=== PATIENT | male | born 1970 | race African-American/Black ===

== ENCOUNTER 2018-10-25 11:47 | Emergency (ER) | payer MEDICAID ==
[~2018-10-25] VITALS: Ht 170.2 cm; Wt 70.0 kg
[2018-10-25] MEDS ORDERED: LIDOCAINE 1%/EPI 1:100,000 10 ML VIAL IJ ONE (14:45)
[2018-10-25] MEDS ORDERED: BACITRACIN ZINC OINT UDPKT TOP ONE (14:45)
[2018-10-25] MEDS ORDERED: LIDOCAINE HCL/EPINEPHRINE 1%-EPI 1:100,000 20 ML VIAL INFIL ONE (15:00)
[2018-10-25] MEDS ORDERED: TETANUS, DIPHTHERIA, PERTUSSIS VAC/PF 0.5ML (>7YR OLD) IM ONE (15:00)
[2018-10-25 15:25] VITALS: BP 148/85
== END 2018-10-25 15:25 | disposition home or self-care (01) ==
LOC: ER 11:47
DX: S61.412A Laceration without foreign body of left hand, initial encounter (principal); W26.0XXA Contact with knife, initial encounter; Y93.89 Activity, other specified; Y92.89 Other specified places as the place of occurrence of the external cause; Y99.8 Other external cause status
CPT/HCPCS: 12001; 90471; 90715; 99283; J3490

== ENCOUNTER 2019-01-31 11:02 | Emergency (ER) | payer MEDICAID ==
[~2019-01-31] VITALS: Ht 190.5 cm; Wt 93.0 kg
[2019-01-31] MEDS ORDERED: IBUPROFEN 400MG TABLET PO ONE (11:45)
[2019-01-31 11:53] VITALS: BP 130/87
== END 2019-01-31 11:55 | disposition home or self-care (01) ==
LOC: ER 11:02
DX: L03.011 Cellulitis of right finger (principal); F17.290 Nicotine dependence, other tobacco product, uncomplicated; F12.10 Cannabis abuse, uncomplicated
CPT/HCPCS: 99283

== ENCOUNTER 2019-02-14 10:02 | Emergency (ER) | payer MEDICAID ==
[~2019-02-14] VITALS: Ht 182.9 cm; Wt 94.6 kg
[2019-02-14 10:50] VITALS: BP 132/95
== END 2019-02-14 13:12 | disposition home or self-care (01) ==
LOC: ER 10:02
DX: S60.021A Contusion of right index finger without damage to nail, initial encounter (principal); F12.10 Cannabis abuse, uncomplicated; W23.0XXA Caught, crushed, jammed, or pinched between moving objects, initial encounter; Y93.89 Activity, other specified; Y92.89 Other specified places as the place of occurrence of the external cause; Y99.8 Other external cause status
CPT/HCPCS: 73140; 99283

== ENCOUNTER 2019-02-27 22:47 | Emergency (ER) | payer MEDICAID ==
[~2019-02-27] VITALS: Ht 185.4 cm; Wt 90.0 kg
[2019-02-27] MEDS ORDERED: PHENYTOIN SODIUM 1,000 MG in SODIUM CHLORIDE 0.9% 100 ML IV ONE (23:45)
[2019-02-28 00:18] LABS: BASOPHILS % 0.7 % (0.0-2.0); EOSINOPHILS % 1.3 % (0.0-5.0); HEMATOCRIT. 39.3 % (42.0-52.0); LYMPHOCYTES % 17.5 % (20.0-50.0); MEAN CORPUSCULAR HEMOGLOBIN 28.5 pg (28.0-32.0); MEAN CORPUSCULAR VOLUME 86.5 fL (80.0-94.0); MEAN PLATELET VOLUME 7.8 fl (7.4-10.4); MONOCYTES % 8.8 % (2.0-8.0); NEUTROPHILS % 71.7 % (40.0-76.0); PLATELET 212 x1000/uL (130-400); RED BLOOD CELL COUNT 4.54 mill/uL (4.7-6.1); RED CELL DISTRIBUTION WIDTH 14.4 % (11.6-14.6)
[2019-02-28 00:23] LABS: CHLORIDE 105 mEq/L (98-107)
[2019-02-28 00:29] LABS: ETHANOL BLOOD < 10 mg/dL
[2019-02-28 00:51] LABS: CLARITY URINE CLEAR (CLEAR); COLOR URINE YELLOW (YELLOW); KETONES URINE NEGATIVE (NEGATIVE); LEUKOCYTE ESTERASE URINE NEGATIVE (NEGATIVE); NITRITE URINE NEGATIVE (NEGATIVE); OCCULT BLOOD URINE NEGATIVE (NEGATIVE); PROTEIN URINE NEGATIVE (NEGATIVE); SPECIFIC GRAVITY URINE 1.016 (1.005-1.030)
[2019-02-28 01:26] LABS: *COCAINE SCREEN URINE NEGATIVE (NEGATIVE); CANNABINOID URINE SCREEN PRESUMTIVE POSITIVE (NEGATIVE); METHADONE URINE SCREEN NEGATIVE (NEGATIVE); OPIATES URINE SCREEN NEGATIVE (NEGATIVE); PHENCYCLIDINE URINE SCREEN NEGATIVE (NEGATIVE)
[2019-02-28 01:27] LABS: *AMPHETAMINES SCREEN URINE NEGATIVE (NEGATIVE); *BARBITURATES SCREEN URINE NEGATIVE (NEGATIVE); *BENZODIAZEPINES SCREEN URINE NEGATIVE (NEGATIVE)
[2019-02-28 02:45] VITALS: BP 141/87
== END 2019-02-28 03:09 | disposition home or self-care (01) ==
LOC: ER 22:47
DX: G40.909 Epilepsy, unspecified, not intractable, without status epilepticus (principal); F12.10 Cannabis abuse, uncomplicated; Z91.14 Patient's other noncompliance with medication regimen
CPT/HCPCS: 36415; 80053; 80305; 80320; 81003; 85025; 96365; 99283; J1165; J7050; G0480

== ENCOUNTER 2020-02-10 01:52 | Emergency (ER) | payer MEDICAID ==
[~2020-02-10] VITALS: Ht 177.8 cm; Wt 82.0 kg
[2020-02-10 01:57] VITALS: BP 169/119
[2020-02-10] MEDS ORDERED: LEVETIRACETAM 100MG/ML ORAL SYR PO ONE (02:15)
[2020-02-10] MEDS ORDERED: LEVETIRACETAM 500MG/5ML CUP PO NR (02:30)
== END 2020-02-10 02:30 | disposition home or self-care (01) ==
LOC: ER 01:52
DX: R56.9 Unspecified convulsions (principal); F12.10 Cannabis abuse, uncomplicated; Z91.14 Patient's other noncompliance with medication regimen
CPT/HCPCS: 93005; 99283

== ENCOUNTER 2021-09-23 13:11 | Emergency (ER) | payer MEDICAID ==
[~2021-09-23] VITALS: Ht 180.3 cm; Wt 82.0 kg
[2021-09-23] MEDS ORDERED: LEVETIRACETAM 500MG PREMIX 100 ML IV ONE ×2 (13:45→15:00)
[2021-09-23] MEDS ORDERED: MIDAZOLAM HCL 2 MG/2 ML VIAL IM ONE (13:45)
[2021-09-23] MEDS ORDERED: SODIUM CHLORIDE 0.9% 1,000 ML IV ONE (13:45)
[2021-09-23] MEDS ORDERED: LEVETIRACETAM 500MG/5ML CUP PO ONE (14:30)
[2021-09-23] MEDS ORDERED: MIDAZOLAM HCL 2 MG/2 ML VIAL IV ONE (15:00)
[2021-09-23 15:27] LABS: BASOPHILS % 0.5 % (0.0-2.0); EOSINOPHILS % 0.1 % (0.0-5.0); HEMATOCRIT. 40.7 % (42.0-52.0); HEMOGLOBIN. 13.5 g/dL (14.0-18.0); LYMPHOCYTES % 15.7 % (20.0-50.0); MEAN CORPUSCULAR HEMOGLOBIN 28.2 pg (28.0-32.0); MEAN CORPUSCULAR VOLUME 85.4 fL (80.0-94.0); MEAN PLATELET VOLUME 7.8 fl (7.4-10.4); MONOCYTES % 7.4 % (2.0-8.0); NEUTROPHILS % 76.3 % (40.0-76.0); PLATELET 271 x1000/uL (130-400); RED BLOOD CELL COUNT 4.77 mill/uL (4.7-6.1); RED CELL DISTRIBUTION WIDTH 13.8 % (11.6-14.6)
[2021-09-23 15:38] LABS: CHLORIDE 104 mEq/L (98-107)
[2021-09-23 15:46] LABS: ETHANOL BLOOD < 10 mg/dL; VALPROIC ACID <3.0 ug/mL ug/mL (50-100)
[2021-09-23 16:00] LABS: CARBAMAZEPINE < 0.5 ug/mL (4-12); PHENOBARBITAL < 2.1 ug/mL (15.0-40.0)
[2021-09-23] MEDS ORDERED: KEPP500 MT (16:55)
[2021-09-23 19:30] VITALS: BP 142/90
== END 2021-09-23 20:58 | disposition home or self-care (01) ==
LOC: ER 13:11
DX: R56.9 Unspecified convulsions (principal); F12.10 Cannabis abuse, uncomplicated; R41.0 Disorientation, unspecified
CPT/HCPCS: 36415; 80053; 80156; 80165; 80184; 80185; 80320; 85025; 93005; 96365; 96375; 99285; J1953; J2250; J7030; G0480

== ENCOUNTER 2021-12-02 17:21 | Emergency (ER) | payer MEDICAID ==
[~2021-12-02] VITALS: Ht 175.3 cm; Wt 77.0 kg
[~2021-12-02 17:21] MED LIST: KEPP500 MT
[2021-12-02 18:20] VITALS: BP 171/121
[2021-12-02] MEDS ORDERED: LEVETIRACETAM 500MG TABLET PO ONE (18:30)
[2021-12-02 19:42] LABS: HEMATOCRIT. 39.9 % (42.0-52.0); HEMOGLOBIN. 13.3 g/dL (14.0-18.0); MEAN CORPUSCULAR HEMOGLOBIN 28.3 pg (28.0-32.0); MEAN CORPUSCULAR VOLUME 85.1 fL (80.0-94.0); MEAN PLATELET VOLUME 8.3 fl (7.4-10.4); PLATELET 259 x1000/uL (130-400); RED BLOOD CELL COUNT 4.69 mill/uL (4.7-6.1); RED CELL DISTRIBUTION WIDTH 14.8 % (11.6-14.6)
[2021-12-02 19:45] LABS: CLARITY URINE CLEAR (CLEAR); COLOR URINE YELLOW (YELLOW); KETONES URINE NEGATIVE (NEGATIVE); NITRITE URINE NEGATIVE (NEGATIVE); OCCULT BLOOD URINE NEGATIVE (NEGATIVE); PROTEIN URINE NEGATIVE (NEGATIVE); SPECIFIC GRAVITY URINE 1.015 (1.005-1.030)
[2021-12-02 19:46] LABS: LEUKOCYTE ESTERASE URINE NEGATIVE (NEGATIVE); UROBILINOGEN URINE 0.2 E.U./dL (0.2-1.0)
[2021-12-02 19:48] LABS: CHLORIDE 103 mEq/L (98-107)
[2021-12-02 19:59] LABS: ETHANOL BLOOD < 10 mg/dL
[2021-12-02 20:01] LABS: *AMPHETAMINES SCREEN URINE NEGATIVE (NEGATIVE); *BARBITURATES SCREEN URINE NEGATIVE (NEGATIVE); *BENZODIAZEPINES SCREEN URINE NEGATIVE (NEGATIVE); *COCAINE SCREEN URINE NEGATIVE (NEGATIVE); CANNABINOID URINE SCREEN PRESUMTIVE POSITIVE (NEGATIVE); METHADONE URINE SCREEN NEGATIVE (NEGATIVE); OPIATES URINE SCREEN NEGATIVE (NEGATIVE); PHENCYCLIDINE URINE SCREEN NEGATIVE (NEGATIVE)
[2021-12-02] MEDS ORDERED: KEPP500 MT (20:16)
[2021-12-02 22:35] LABS: PLATELET ESTIMATE NORMAL
== END 2021-12-02 20:45 | disposition home or self-care (01) ==
LOC: ER 17:21
DX: G40.509 Epileptic seizures related to external causes, not intractable, without status epilepticus (principal); D64.9 Anemia, unspecified; F17.200 Nicotine dependence, unspecified, uncomplicated; F12.10 Cannabis abuse, uncomplicated; I10 Essential (primary) hypertension; Z13.9 Encounter for screening, unspecified
CPT/HCPCS: 36415; 80053; 80305; 80320; 81003; 82962; 85025; 99283; G0480

== ENCOUNTER 2022-01-01 10:40 | Emergency (ER) | payer MEDICAID ==
[~2022-01-01] VITALS: Ht 177.8 cm; Wt 95.0 kg
[2022-01-01] MEDS ORDERED: LEVETIRACETAM 500MG PREMIX 100 ML IV ONE (11:00)
[2022-01-01 11:29] LABS: BASOPHILS % 0.9 % (0.0-2.0); EOSINOPHILS % 0.5 % (0.0-5.0); HEMATOCRIT. 40.2 % (42.0-52.0); HEMOGLOBIN. 13.1 g/dL (14.0-18.0); LYMPHOCYTES % 20.4 % (20.0-50.0); MEAN CORPUSCULAR HEMOGLOBIN 28.2 pg (28.0-32.0); MEAN CORPUSCULAR VOLUME 86.6 fL (80.0-94.0); MEAN PLATELET VOLUME 8.3 fl (7.4-10.4); MONOCYTES % 6.6 % (2.0-8.0); NEUTROPHILS % 71.6 % (40.0-76.0); PLATELET 245 x1000/uL (130-400); RED BLOOD CELL COUNT 4.64 mill/uL (4.7-6.1); RED CELL DISTRIBUTION WIDTH 14.4 % (11.6-14.6)
[2022-01-01 11:35] LABS: CHLORIDE 107 mEq/L (98-107)
[2022-01-01 11:42] LABS: ETHANOL BLOOD < 10 mg/dL
[2022-01-01 12:18] LABS: *AMPHETAMINES SCREEN URINE NEGATIVE (NEGATIVE); *BARBITURATES SCREEN URINE NEGATIVE (NEGATIVE); *BENZODIAZEPINES SCREEN URINE NEGATIVE (NEGATIVE); *COCAINE SCREEN URINE NEGATIVE (NEGATIVE); CANNABINOID URINE SCREEN PRESUMTIVE POSITIVE (NEGATIVE); METHADONE URINE SCREEN NEGATIVE (NEGATIVE); OPIATES URINE SCREEN NEGATIVE (NEGATIVE); PHENCYCLIDINE URINE SCREEN NEGATIVE (NEGATIVE)
[2022-01-01 12:58] VITALS: BP 160/97
== END 2022-01-01 13:29 | disposition home or self-care (01) ==
LOC: ER 10:40
DX: R56.9 Unspecified convulsions (principal)
CPT/HCPCS: 36415; 80053; 80305; 80320; 85025; 96374; 99283; J1953; G0480

== ENCOUNTER 2022-04-08 09:14 | Emergency (ER) | payer MEDICAID ==
[~2022-04-08] VITALS: Ht 185.4 cm; Wt 86.0 kg
[2022-04-08] MEDS ORDERED: LORAZEPAM 2MG/ML CPJ IV PRN (09:45)
[2022-04-08] MEDS ORDERED: LEVETIRACETAM 1,000 MG in SODIUM CHLORIDE 0.9% 100 ML IV SCH (09:45)
[2022-04-08] MEDS ORDERED: SODIUM CHLORIDE 0.9% 1,000 ML IV ONE (09:45)
[2022-04-08 09:49] VITALS: BP 171/110
[2022-04-08] MEDS ORDERED: LEVETIRACETAM 1000MG PREMIX 100 ML IV SCH (10:00)
[2022-04-08] MEDS ORDERED: LEVETIRACETAM 500MG TABLET PO ONE (10:15)
[2022-04-08 11:36] LABS: CLARITY URINE CLEAR (CLEAR); COLOR URINE YELLOW (YELLOW); KETONES URINE NEGATIVE (NEGATIVE); LEUKOCYTE ESTERASE URINE NEGATIVE (NEGATIVE); NITRITE URINE NEGATIVE (NEGATIVE); OCCULT BLOOD URINE NEGATIVE (NEGATIVE); PROTEIN URINE 2+ (NEGATIVE); SPECIFIC GRAVITY URINE 1.014 (1.005-1.030); UROBILINOGEN URINE 0.2 E.U./dL (0.2-1.0)
[2022-04-08 11:56] LABS: *AMPHETAMINES SCREEN URINE NEGATIVE (NEGATIVE); *BARBITURATES SCREEN URINE NEGATIVE (NEGATIVE); *BENZODIAZEPINES SCREEN URINE NEGATIVE (NEGATIVE); *COCAINE SCREEN URINE NEGATIVE (NEGATIVE); CANNABINOID URINE SCREEN PRESUMTIVE POSITIVE (NEGATIVE); METHADONE URINE SCREEN NEGATIVE (NEGATIVE); OPIATES URINE SCREEN NEGATIVE (NEGATIVE); PHENCYCLIDINE URINE SCREEN NEGATIVE (NEGATIVE)
== END 2022-04-08 12:21 | disposition home or self-care (01) ==
LOC: ER 09:14
DX: G40.909 Epilepsy, unspecified, not intractable, without status epilepticus (principal); R94.31 Abnormal electrocardiogram [ECG] [EKG]; F10.10 Alcohol abuse, uncomplicated; Y90.9 Presence of alcohol in blood, level not specified; Z79.899 Other long term (current) drug therapy
CPT/HCPCS: 80305; 81003; 93005; 99284; J7030; Z7610; J1953; J7050

== ENCOUNTER 2022-05-09 10:49 | Emergency (ER) | payer MEDICAID ==
[~2022-05-09] VITALS: Ht 182.9 cm; Wt 91.0 kg
[2022-05-09] MEDS ORDERED: LEVETIRACETAM 500MG PREMIX 100 ML IV ONE (11:00)
[2022-05-09 12:43] LABS: BASOPHILS % 0.4 % (0.0-2.0); EOSINOPHILS % 0.2 % (0.0-5.0); HEMATOCRIT. 38.8 % (42.0-52.0); HEMOGLOBIN. 12.8 g/dL (14.0-18.0); LYMPHOCYTES % 10.9 % (20.0-50.0); MEAN CORPUSCULAR HEMOGLOBIN 28.2 pg (28.0-32.0); MEAN CORPUSCULAR VOLUME 85.3 fL (80.0-94.0); MEAN PLATELET VOLUME 7.9 fl (7.4-10.4); MONOCYTES % 5.4 % (2.0-8.0); NEUTROPHILS % 83.1 % (40.0-76.0); PLATELET 233 x1000/uL (130-400); RED BLOOD CELL COUNT 4.54 mill/uL (4.7-6.1); RED CELL DISTRIBUTION WIDTH 14.6 % (11.6-14.6)
[2022-05-09 12:56] LABS: CHLORIDE 104 mEq/L (98-107)
[2022-05-09] MEDS ORDERED: LEVETIRACETAM 500MG PREMIX 100 ML IV NR (13:49)
[2022-05-09] MEDS ORDERED: LEVETIRACETAM 500MG TABLET PO ONE (14:00)
[2022-05-09 14:35] VITALS: BP 156/89
== END 2022-05-09 14:38 | disposition home or self-care (01) ==
LOC: ER 10:53
DX: R56.9 Unspecified convulsions (principal)
CPT/HCPCS: 36415; 80053; 85025; 93005; 99284; Z7610

== ENCOUNTER 2023-03-25 21:42 | Emergency (ER) | payer MEDICAID ==
[~2023-03-25] VITALS: Ht 177.8 cm; Wt 91.0 kg
[2023-03-25 21:46] VITALS: BP 157/98; PULSE 97; RESP 18; TEMP 98.7; O2SAT 97
[2023-03-25 22:45] LABS: BASOPHILS % 0.7 % (0.0-2.0); EOSINOPHILS % 2.3 % (0.0-5.0); HEMATOCRIT. 35.5 % (42.0-52.0); HEMOGLOBIN. 11.7 g/dL (14.0-18.0); LYMPHOCYTES % 21.4 % (20.0-50.0); MEAN CORPUSCULAR HEMOGLOBIN 28.7 pg (28.0-32.0); MEAN CORPUSCULAR HGB CONC 33.1 g/dL (31.0-37.0); MEAN CORPUSCULAR VOLUME 86.6 fL (80.0-94.0); MEAN PLATELET VOLUME 7.6 fl (7.4-10.4); MONOCYTES % 6.5 % (2.0-8.0); NEUTROPHILS % 69.1 % (40.0-76.0); PLATELET 231 x1000/uL (130-400); RED CELL DISTRIBUTION WIDTH 16.5 % (11.6-14.6); WHITE BLOOD COUNT 5.9 x1000/uL (4.5-11.0)
[2023-03-25 23:00] LABS: ALANINE AMINOTRANSFERASE 42 IU/L (10-49); AMMONIA < 10 uMol/L (<32); ASPARTATE AMINOTRANSFERASE 37 IU/L (<34); BILIRUBIN TOTAL 0.5 mg/dL (0.1-1.0); CARBON DIOXIDE 25 mEq/L (21-32); CHLORIDE 102 mEq/L (98-107); CREATINE KINASE 138 IU/L (46-171); CREATININE 0.9 mg/dL (0.6-1.3); ETHANOL BLOOD < 10 mg/dL (<10); GLUCOSE 110 mg/dL (70-105); POTASSIUM 4.1 mEq/L (3.5-5.1); PROTEIN TOTAL 7.2 g/dL (6.0-8.3); SODIUM 136 mEq/L (136-145); UREA NITROGEN BLOOD 16 mg/dL (9-23)
[2023-03-26] MEDS ORDERED: NALO4SPR BOTHNSTRLS (00:52)
== END 2023-03-26 02:33 | disposition home or self-care (01) ==
LOC: ER 21:42
DX: T50.7X1A Poisoning by analeptics and opioid receptor antagonists, accidental (unintentional), initial encounter (principal); X58.XXXA Exposure to other specified factors, initial encounter; R56.9 Unspecified convulsions
CPT/HCPCS: 36415; 80053; 80320; 82140; 82550; 85025; 99283; G0480

== ENCOUNTER 2023-04-02 13:00 | Emergency (ER) | payer MEDICAID ==
[~2023-04-02] VITALS: Ht 190.5 cm; Wt 91.0 kg
[~2023-04-02 13:00] MED LIST changes: +NALO4SPR BOTHNSTRLS
[2023-04-02 13:10] VITALS: TEMP 98.7; O2SAT 98
[2023-04-02] MEDS: LEVETIRACETAM 500MG TABLET PO ONE (13:30)
[2023-04-02 15:30] LABS: CLARITY URINE CLEAR (CLEAR); COLOR URINE YELLOW (YELLOW); GLUCOSE URINE NEGATIVE (NEGATIVE); KETONES URINE NEGATIVE (NEGATIVE); LEUKOCYTE ESTERASE URINE NEGATIVE (NEGATIVE); NITRITE URINE NEGATIVE (NEGATIVE); OCCULT BLOOD URINE NEGATIVE (NEGATIVE); PH URINE 6.5 (4.5-8.0); PROTEIN URINE NEGATIVE (NEGATIVE); SPECIFIC GRAVITY URINE 1.009 (1.005-1.030); UROBILINOGEN URINE 0.2 E.U./dL (0.2-1.0)
[2023-04-02 15:34] LABS: BASOPHILS % 0.5 % (0.0-2.0); EOSINOPHILS % 0.4 % (0.0-5.0); HEMATOCRIT. 39.1 % (42.0-52.0); HEMOGLOBIN. 12.8 g/dL (14.0-18.0); LYMPHOCYTES % 17.1 % (20.0-50.0); MEAN CORPUSCULAR HEMOGLOBIN 28.2 pg (28.0-32.0); MEAN CORPUSCULAR HGB CONC 32.7 g/dL (31.0-37.0); MEAN CORPUSCULAR VOLUME 86.4 fL (80.0-94.0); MONOCYTES % 5.6 % (2.0-8.0); NEUTROPHILS % 76.4 % (40.0-76.0); PLATELET 278 x1000/uL (130-400); RED BLOOD CELL COUNT 4.53 mill/uL (4.7-6.1); RED CELL DISTRIBUTION WIDTH 16.8 % (11.6-14.6); WHITE BLOOD COUNT 8.4 x1000/uL (4.5-11.0)
[2023-04-02 15:48] LABS: *AMPHETAMINES SCREEN URINE NEGATIVE (NEGATIVE); *BARBITURATES SCREEN URINE NEGATIVE (NEGATIVE); *BENZODIAZEPINES SCREEN URINE NEGATIVE (NEGATIVE); *COCAINE SCREEN URINE NEGATIVE (NEGATIVE); CANNABINOID URINE SCREEN PRESUMPTIVE POSITIVE (NEGATIVE); ECSTASY MDMA SCREEN URINE NEGATIVE (NEGATIVE); METHADONE URINE SCREEN Neg (NEGATIVE); OPIATES URINE SCREEN NEGATIVE (NEGATIVE); PHENCYCLIDINE URINE SCREEN NEGATIVE (NEGATIVE)
[2023-04-02 15:49] LABS: ALANINE AMINOTRANSFERASE 40 IU/L (10-49); ALBUMIN 4.1 g/dL (3.2-4.8); ASPARTATE AMINOTRANSFERASE 26 IU/L (<34); BILIRUBIN TOTAL 0.7 mg/dL (0.1-1.0); CARBON DIOXIDE 27 mEq/L (21-32); CHLORIDE 101 mEq/L (98-107); CREATININE 0.8 mg/dL (0.6-1.3); GLUCOSE 77 mg/dL (70-105); PROTEIN TOTAL 7.2 g/dL (6.0-8.3); SODIUM 133 mEq/L (136-145); UREA NITROGEN BLOOD 10 mg/dL (9-23)
[2023-04-02 15:56] LABS: ETHANOL BLOOD < 10 mg/dL (<10)
[2023-04-02 16:30] VITALS: BP 158/93; PULSE 58; RESP 17
== END 2023-04-02 17:04 | disposition home or self-care (01) ==
LOC: ER 13:00
DX: R56.9 Unspecified convulsions (principal); Z98.890 Other specified postprocedural states
CPT/HCPCS: 80053; 80305; 81003; 80320; 85025; 36415; 99283; Z7610 ×2; G0480

== ENCOUNTER 2023-12-07 13:02 | Emergency (ER) | payer MEDICAID ==
[~2023-12-07] VITALS: Ht 180.3 cm; Wt 80.0 kg
[2023-12-07 13:04] VITALS: O2SAT 98
[2023-12-07] MEDS ORDERED: SODIUM CHLORIDE 0.9% 1,000 ML IV ONE (14:00)
[2023-12-07] MEDS ORDERED: LEVETIRACETAM 500MG PREMIX 100 ML IV ONE (14:00)
[2023-12-07 15:59] VITALS: BP 141/71; PULSE 95; RESP 16; TEMP 36.94740; O2SAT 98
[2023-12-07] MEDS ORDERED: IPRATROPIUM/ALBUTEROL 0.5-3(2.5)MG/3ML NEB HHN PRN (16:00)
[2023-12-07] MEDS ORDERED: LORAZEPAM 2MG/ML INJ IV PRN (16:00)
[2023-12-07] MEDS ORDERED: MAGNESIUM/ALUMINUM HYDROXIDE/SIMETHICONE 30ML UDC PO PRN (16:00)
[2023-12-07] MEDS ORDERED: DOCUSATE SODIUM 100MG CAPSULE PO PRN (16:00)
[2023-12-07] MEDS ORDERED: ACETAMINOPHEN 325MG TABLET PO PRN ×2 (16:00)
[2023-12-07] MEDS ORDERED: LEVETIRACETAM 500MG PREMIX 100ML IV SCH (21:00)
[2023-12-07] MEDS ORDERED: LEVETIRACETAM 500MG in NACL 100ML PREMIX IV SCH (21:00)
[2023-12-08] MEDS ORDERED: FOLIC ACID 1MG TABLET PO SCH (09:00)
[2023-12-08] MEDS ORDERED: THIAMINE HCL 100MG TABLET PO SCH (09:00)
== END 2023-12-07 16:26 | disposition left against medical advice (07) ==
LOC: ER 13:16
DX: R56.9 Unspecified convulsions (principal); S00.81XA Abrasion of other part of head, initial encounter; X58.XXXA Exposure to other specified factors, initial encounter; Y93.89 Activity, other specified; Y92.89 Other specified places as the place of occurrence of the external cause; Y99.8 Other external cause status
CPT/HCPCS: 99284; 70450; 71045; 93005; J7030

== ENCOUNTER 2024-05-07 09:47 | Emergency (ER) | payer MEDICAID ==
[~2024-05-07] VITALS: Ht 185.4 cm; Wt 90.0 kg
[2024-05-07 09:49] VITALS: BP 166/104; PULSE 88; RESP 16; TEMP 37.1; O2SAT 97
[2024-05-07] MEDS ORDERED: LEVETIRACETAM 1000MG PREMIX 100 ML IV ONE (10:15)
== END 2024-05-07 10:28 | disposition left against medical advice (07) ==
LOC: ER 09:47
DX: R56.9 Unspecified convulsions (principal); Z98.890 Other specified postprocedural states
CPT/HCPCS: 99283